=== PATIENT | male | born 1935 | race Caucasian/White ===

== ENCOUNTER 2020-03-03 06:33 | Emergency (ER) | payer MEDICARE, SELFPAY ==
[2020-03-03 06:42] VITALS: BP 132/78; PULSE 88; RESP 18; TEMP 35.6; O2SAT 97; BMI 33.3
--- NOTE | 2020-03-03 06:57 | W.ED.ALLEREA ---
Documented by User: Gamal Menjivar DO 03/03/20 06:59 HPI - Allergic Reaction General: Chief complaint: Allergic Reaction Stated complaint: LEFT HAND ITCHY Time Seen by Provider: 03/03/20 06:57 History of Present Illness: HPI narrative: 84-year-old male presents with complaint of a skin rash Course Vital Signs: Vital signs: Vital Signs Temperature 96.0 F L 03/03/20 06:42 Pulse Rate 96 03/03/20 07:16 Respiratory Rate 16 03/03/20 07:16 Blood Pressure 105/7 03/03/20 07:16 Pulse Oximetry 96 03/03/20 07:16 Coding Level of Care Code ED Cleaning Technician for Chg Fwd Documented by User: [email or web address] Isabel 03/03/20 07:22 HPI - Allergic Reaction General: Chief complaint: Allergic Reaction Stated complaint: LEFT HAND ITCHY Time Seen by Provider: 03/03/20 06:57 History of Present Illness: Associated symptoms: Deny abdominal pain, nausea or vomiting Review of Systems Const: Denies: fever(s), chills or fatigue Eyes: Denies: change in vision or eye discomfort ENMT: Denies: throat pain, odynophagia, nasal discharge or nasal congestion Card: Denies: chest pain, palpitations, edema, swelling of feet/ankles, dyspnea on exertion or orthopnea Resp: Denies: dyspnea, productive cough or non-productive cough GI: Denies: abdominal pain, nausea, vomiting, diarrhea, constipation or hematochezia : Denies: flank pain, difficulty urinating, dysuria or hematuria Musc: Denies: neck pain, back pain or extremity swelling Skin/Breast: Denies: rash or new lesions Neuro: Denies: headache(s), numbness in extremities or weakness in extremities Physical Exam Const: COMMON NORMALS: patient oriented x3 HENMT: COMMON NORMALS: normocephalic HEAD & SCALP: normocephalic MOUTH: Normal oral and palatal mucosa present THROAT: posterior oropharynx normal and uvula midline Neck/C-Spine: COMMON NORMALS: supple GENERAL: Yes normal visual inspection Resp: COMMON NORMALS: normal respiratory effort, No retractions, No use of accessory muscles and clear to auscultation bilaterally AUSCULTATION: clear to auscultation bilaterally Cardio: COMMON NORMALS: regular rate, regular rhythm, S1 normal heart sound present, S2 normal heart sound present, No gallops present (Cardio), No clicks present (Cardio), No murmurs present (Cardio) and Peripheral pulses 2+ throughout RATE: regular rate RHYTHM: regular rhythm HEART SOUNDS: S1 normal heart sound present and S2 normal heart sound present PERIPHERAL PULSES: Peripheral pulses 2+ throughout GI: COMMON NORMALS: Normal to inspection, nondistended, normoactive bowel sounds present, Soft to palpation, non-tender and no masses PALPATION: Yes Soft to palpation : COMMON NORMALS: Yes no CVA tenderness BLADDER/KIDNEY EXAM: Yes no CVA tenderness Back/Pelvis: COMMON NORMALS: no CVA tenderness Neuro: COMMON NORMALS: patient oriented x3 and moves all extremities Course Vital Signs: Vital signs: Vital Signs Temperature 96.0 F L 03/03/20 06:42 Pulse Rate 96 03/03/20 07:16 Respiratory Rate 16 03/03/20 07:16 Blood Pressure 105/7 03/03/20 07:16 Pulse Oximetry 96 03/03/20 07:16 Coding Level of Care Code ED Cleaning Technician for Donna Min
[2020-03-03 07:16] VITALS: BP 105/7; PULSE 96; RESP 16; O2SAT 96
--- NOTE | 2020-03-03 07:30 | ED_ITS ---
HPI - Allergic Reaction General: Chief complaint: Allergic Reaction Stated complaint: LEFT HAND ITCHY Time Seen by Provider: 03/03/20 06:57 History of Present Illness: MD complaint: allergic reaction and hives Onset (ago): day(s) (Started on Tuesday after working in garden/[employer].) Exposure: plant (Patient says he was working in his garden before the rash started.) Associated symptoms: Reports no associated symptoms and rash (pruritic rash on Left hand and wrist.); Deny abdominal pain, difficulty breathing, dizziness, lip swelling, nausea or vomiting Severity: mild Treatment prior to arrival: benadryl and ice Previous Allergic Reaction History: none Review of Systems Const: Denies: fever(s), chills or fatigue Eyes: Denies: change in vision or eye discomfort ENMT: Denies: throat pain, odynophagia, nasal discharge or nasal congestion Card: Denies: chest pain, palpitations, edema, swelling of feet/ankles, dyspnea on exertion or orthopnea Resp: Denies: dyspnea, productive cough or non-productive cough GI: Denies: abdominal pain, nausea, vomiting, diarrhea, constipation or hematochezia : Denies: flank pain, difficulty urinating, dysuria or hematuria Musc: Denies: neck pain, back pain or extremity swelling Skin/Breast: Reports: rash (Pruritic red rash on left hand and wrist.); Denies: new lesions Neuro: Denies: headache(s), numbness in extremities, weakness in extremities or dizziness Physical Exam Narrative: EXAM NARRATIVE: Patient is a happy pleasant 84-year-old male who is sitting on the exam bed when I enter the room. He is in no acute distress or pain. Const: COMMON NORMALS: no acute distress, patient oriented x3 and alert GENERAL APPEARANCE: cooperative and comfortable HENMT: COMMON NORMALS: normocephalic HEAD & SCALP: normocephalic MOUTH: Normal oral and palatal mucosa present THROAT: posterior oropharynx normal and uvula midline Neck/C-Spine: COMMON NORMALS: supple GENERAL: Yes normal visual inspection Resp: COMMON NORMALS: normal respiratory effort, No retractions, No use of accessory muscles and clear to auscultation bilaterally AUSCULTATION: clear to auscultation bilaterally Cardio: COMMON NORMALS: regular rate, regular rhythm, S1 normal heart sound present, S2 normal heart sound present, No gallops present (Cardio), No clicks present (Cardio), No murmurs present (Cardio) and Peripheral pulses 2+ throughout RATE: regular rate RHYTHM: regular rhythm HEART SOUNDS: S1 normal heart sound present and S2 normal heart sound present PERIPHERAL PULSES: Peripheral pulses 2+ throughout GI: COMMON NORMALS: Normal to inspection, nondistended, normoactive bowel sounds present, Soft to palpation, non-tender and no masses PALPATION: Yes Soft to palpation : COMMON NORMALS: Yes no CVA tenderness BLADDER/KIDNEY EXAM: Yes no CVA tenderness Back/Pelvis: COMMON NORMALS: no CVA tenderness Extremity: GENERAL: Yes normal exam except as noted LEFT UPPER EXTREMITY: Yes hand & digits Left hand and digits: Yes inspection (Patient had erythematous rash that was pruritic and is on palm of left hand and goes down to the wrist. Some swelling around hand. Rash is not warm or tender and no vesicles or drainage seen.) Neuro: COMMON NORMALS: patient oriented x3 and moves all extremities SENSORIUM/ORIENTATION: Yes alert Skin: GENERAL SKIN EXAM: dry skin RASHES: rashes noted Left hand (palm) and wrist Rash type: Yes maculopapular, No vesicle and No pustule Rash location: left hand(palm) and wrist (anterior aspect) Rash distribution: Yes clustered and Yes asymmetrical Rash color: Yes blanching and Yes erythematous Rash surface: Yes dry and Yes raised Rash tenderness: Yes nontender Rash findings consistent with: Yes contact dermatitis (Rash is erythematous and pruritic) Course Vital Signs: Vital signs: Vital Signs Temperature 96.0 F L 03/03/20 06:42 Pulse Rate 78 03/03/20 08:04 Respiratory Rate 17 03/03/20 08:04 Blood Pressure 111/88 03/03/20 08:04 Pulse Oximetry 96 03/03/20 08:04 MDM - Allergic Reaction MDM Narrative: Medical decision making narrative: Patient is an 84-year-old male that comes to the ED with pruritic rash on left hand and wrist 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 Physical exam showed patient in no a cute distress with pruritic and erythematous rash on left hand and wrist. No tenderness or warmth upon palpation. He had some edema in his left hand as well. Patient was given an IM dose of Kenalog to help with rash to improve symptoms. He was told to follow-up with his PCP in 7 days for reevaluation. Return to ED if symptoms worsen or if rash becomes warm, increasing redness and tender. Patient understood and agreed with plan. Discharge Plan Discharge Patient Disposition: Home Clinical Impression: Allergic reaction Qualifiers: Encounter type: initial encounter Qualified Code(s): T78.40XA - Allergy, unspecified, initial encounter Condition: Stable Discharge Orders: Discharge Order (Routine); Ordered 03/03/20 Ordered By: Efe Mendoza Discharge Diet: Regular Discharge Activity: Resume usual activity Patient Instructions: Allergic Reaction, Contact Dermatitis (ED) Activity Restrictions/Additional Instructions: Follow-up with medical provider as directed in 7 days. Rash should start improving over the next 48 to 72 hours. Continue taking home medications as previously prescribed. If rash on hand continues getting red, warm and tender, then return to the ER or your medical provider for reevaluation. Please read and understand discharge instructions. If any questions, please ask. Discharge Date/Time: 03/03/20 08:02 Coding Level of Care Code ED Bobbin Hauler for Donna Min Exam Comprehensive
[2020-03-03] MEDS: triamcinolone 40 mg/mL SDV IM (07:55)
[2020-03-03 08:04] VITALS: BP 111/88; PULSE 78; RESP 17; O2SAT 96
== END 2020-03-03 08:02 | disposition home or self-care (01) ==
PROVIDERS: Emergency Provider Physician Assistant
DX: T78.40XA Allergy, unspecified, initial encounter (principal)
CPT/HCPCS: 12345; 96372; 99282; J3301